=== PATIENT | male | born 1980 | race American Indian/Alaskan Native ===

== ENCOUNTER 2016-08-10 00:22 | Emergency (ER) | payer OTHER ==
[2016-08-10 06:28] VITALS: BP 161/104
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
[2016-08-10] MEDS ORDERED: ULTRAM PO ONE (07:17)
== END 2016-08-10 08:22 | disposition home or self-care (01) ==
LOC: ED 00:22
DX: S16.1XXA Strain of muscle, fascia and tendon at neck level, initial encounter (principal); Z88.0 Allergy status to penicillin; V49.49XA Driver injured in collision with other motor vehicles in traffic accident, initial encounter; Y93.89 Activity, other specified; Y99.9 Unspecified external cause status; Y92.488 Other paved roadways as the place of occurrence of the external cause
CPT/HCPCS: 99283